=== PATIENT | male | born 1960 | race Caucasian/White ===

== ENCOUNTER → 2017-08-17 | Outpatient (CLI) | payer MEDICARE | END | disposition home or self-care (01) | LOC: LABWHC1 12:55 → MERGE 12:55 | PROVIDERS: ATTEND Nurse Practitioner | DX: F31.4 Bipolar disorder, current episode depressed, severe, without psychotic features (principal) | CPT/HCPCS: 36415; 80178 ==

== ENCOUNTER → 2018-02-14 | Outpatient (CLI) | payer MEDICARE | END | disposition home or self-care (01) | LOC: LABWHC1 10:44 | PROVIDERS: ATTEND Psychiatry & Neurology Psychiatry | DX: F31.4 Bipolar disorder, current episode depressed, severe, without psychotic features (principal) | CPT/HCPCS: 36415; 80178 ==

== ENCOUNTER 2018-04-20 13:15 | Emergency (ER) | payer MEDICARE ==
[2018-04-20] MEDS ORDERED: DEXAMETHASONE SOD PHOSPHATE 10 MG/ML 1 ML VIAL IV STA (14:22)
[2018-04-20] MEDS ORDERED: RACEPINEPHRINE 2.25% NEB 0.5 ML NEBU INHALATION STA (14:22)
[2018-04-20 15:03] LABS: Basophils # (A) 0.1 k/uL (0-0.2); Basophils % (A) 0 %; Eosinophils # (A) 0.4 k/uL (0-0.7); Eosinophils % (A) 3 %; HCT 47.9 % (39.0-53.0); HGB 15.6 gm/dL (13.0-17.5); Lymphocytes # (A) 1.4 k/uL (1.0-4.8); Lymphocytes % (A) 11 %; MCH 29.8 pg (25.0-35.0); MCHC 32.4 g/dL (31.0-37.0); MCV 91.9 fL (80.0-100.0); Mean Platelet Volume 6.1; Monocytes # (A) 0.5 k/uL (0-1.0); Monocytes % (A) 4 %; Neutrophils # (A) 10.1 k/uL (1.3-7.7); Neutrophils % (A) 80 %; Platelet Count 276 k/uL (150-450); RBC 5.22 m/uL (4.30-5.90); RDW 13.2 % (11.5-15.5); WBC 12.7 k/uL (3.8-10.6)
[2018-04-20 15:13] LABS: ALT 34 U/L (21-72); AST 18 U/L (17-59); Albumin 4.2 g/dL (3.5-5.0); Alkaline Phosphatase 44 U/L (38-126); Anion Gap 12 mmol/L; Blood Urea Nitrogen 9 mg/dL (9-20); Calcium 9.8 mg/dL (8.4-10.2); Carbon Dioxide 25 mmol/L (22-30); Chloride 105 mmol/L (98-107); Glucose 160 mg/dL (74-99); Magnesium 2.1 mg/dL (1.6-2.3); Partial Thromboplastin Time 22.4 sec (22.0-30.0); Potassium 4.2 mmol/L (3.5-5.1); Prothrombin Time 9.7 sec (9.0-12.0); Sodium 142 mmol/L (137-145); Total Bilirubin 0.5 mg/dL (0.2-1.3); Total Protein 7.3 g/dL (6.3-8.2)
--- NOTE | 2018-04-20 15:13 | ED ---
General Adult HPI - General Chief complaint: Upper Respiratory Infection Stated complaint: Upper Respiratory Time Seen by Provider: 04/20/18 14:04 Source: patient, RN notes reviewed, old records reviewed Mode of arrival: wheelchair Limitations: no limitations - History of Present Illness Initial comments: 57-year-old male presenting with worsening dyspnea. Patient has history of squamous cell carcinoma, he has had baseline dyspnea for several months, over the past one month this has worsened and he became acutely worse within the past 24 hours. Patient denies cough, denies fever or chills. Denies any chest pain associated with his dyspnea. Patient had previous procedure on his vocal cords after radiation approximately 5 months ago. He did have a rubber banding procedure done which was subsequently removed. He states he is scheduled for a procedure in this upcoming week with ENT. - Related Data Home Medications Medication Instructions Recorded Confirmed Levothyroxine Sodium [Synthroid] 175 mcg PO QAM 08/17/17 04/18/18 [place] Carbonate 600 mg PO BID 04/18/18 04/18/18 Previous Rx's Medication Instructions Recorded Ziprasidone [Geodon] 80 mg PO BID #14 cap 04/25/17 Albuterol Inhaler [Ventolin Hfa 1 - 2 puff INHALATION Q4HR PRN #1 04/20/18 Inhaler] inhaler Levofloxacin [Levaquin] 500 mg PO DAILY 5 Days #5 tab 04/20/18 Nystatin 500,000 unit PO Q6H #200 oral.susp 04/20/18 methylPREDNISolone Dose Pack 4 mg PO DIRECTED #21 package 04/20/18 [Medrol Dose Pack] Allergies Allergy/AdvReac Type Severity Reaction Status Date / Time adhesive tape Allergy Rash/Hives Verified 04/20/18 13:44 lisinopril Allergy Unknown Verified 04/20/18 13:44 Penicillins Allergy Unknown Verified 04/20/18 13:44 Review of Systems ROS Statement: Those systems with pertinent positive or pertinent negative responses have been documented in the HPI. ROS Other: All systems not noted in ROS Statement are negative. Past Medical History Past Medical History: Asthma, Cancer, Hyperlipidemia, Hypertension, Osteoarthritis (OA), Sleep Apnea/CPAP/BIPAP, Thyroid Disorder Additional Past Medical History / Comment(s): hernia on rt side of abdomen, bordrerline high blood pressure- no rx, no rx for cholesterol, laryngeal cancer , foreign body in throat History of Any Multi-Drug Resistant Organisms: None Reported Past Surgical History: Orthopedic Surgery Additional Past Surgical History / Comment(s): ORIF rt conchis-hardware, left femur fx x 2, hammertoe surgery rt foot. Vocal Tumor removed, Past Anesthesia/Blood Transfusion Reactions: No Reported Reaction Past Psychological History: Bipolar Smoking Status: Never smoker - Past Family History Father Family Medical History: Cancer (Father is 78-year-old his dying from stage IV lung cancer.) Additional Family Medical History / Comment(s): Lung Cancer Mother Family Medical History: No Reported History Brother(s) Family Medical History: Neurologic Disorder (He shouldn't has 2 brothers one of them with MS and the other one is okay) Sister(s) Family Medical History: No Reported History (Had one stepsister who couple years ago.) General Exam Limitations: no limitations General appearance: alert, in no apparent distress Head exam: Present: atraumatic, normocephalic Eye exam: Present: normal appearance, PERRL, EOMI ENT exam: Present: other (Posterior pharyngeal malou infection consistent with thrush) Neck exam: Present: normal inspection. Absent: tenderness, meningismus Respiratory exam: Present: respiratory distress (mid), stridor Cardiovascular Exam: Present: regular rate, normal rhythm GI/Abdominal exam: Present: soft, hernia (Ventral hernia, soft reducible). Absent: distended Extremities exam: Present: normal inspection, full ROM Back exam: Present: normal inspection Neurological exam: Present: alert, oriented X3, CN II-XII intact. Absent: motor sensory deficit Psychiatric exam: Present: normal affect, normal mood Skin exam: Present: warm, dry, intact. Absent: cyanosis, diaphoretic Course Vital Signs 04/20/18 04/20/18 04/20/18 13:41 14:01 14:48 Temperature 98.5 F Pulse Rate 100 85 Respiratory 22 18 16 Rate Blood Pressure 143/96 136/72 O2 Sat by Pulse 93 L 96 Oximetry 04/20/18 04/20/18 14:50 14:59 Temperature Pulse Rate 85 92 Respiratory Rate Blood Pressure O2 Sat by Pulse Oximetry Medical Decision Making - Medical Decision Making 57-year-old male with worsening dyspnea. History of squamous cell carcinoma of the larynx. He is scheduled for operation this upcoming week with his ENT surgeon. On exam patient does have mild stridor., He has good air entry bilaterally. Patient is fairly comfortable at rest. Workup reveals chest x- ray shows no right lower lobe infiltrate. Mild leukocytosis at 12.7. Normal electrolytes. Case is discussed with Dr. Chahal, is scheduled for surgery this upcoming Sunday, at this time we both agree that patient is okay for discharge, he will be started on antibiotic, steroids, antifungal and albuterol. He will return with worsening or changing symptoms. And will call on Sunday morning for ENT evaluation. - Lab Data Result diagrams: 04/20/18 14:45 04/20/18 14:45 Lab Results 04/20/18 04/20/18 04/20/18 Range/Units 14:45 14:45 14:45 WBC 12.7 H (3.8-10.6) k/uL RBC 5.22 (4.30-5.90) m/uL Hgb 15.6 (13.0-17.5) gm/dL Hct 47.9 (39.0-53.0) % MCV 91.9 (80.0-100.0) fL MCH 29.8 (25.0-35.0) pg MCHC 32.4 (31.0-37.0) g/dL RDW 13.2 (11.5-15.5) % Plt Count 276 (150-450) k/uL Neutrophils % 80 % Lymphocytes % 11 % Monocytes % 4 % Eosinophils % 3 % Basophils % 0 % Neutrophils # 10.1 H (1.3-7.7) k/uL Lymphocytes # 1.4 (1.0-4.8) k/uL Monocytes # 0.5 (0-1.0) k/uL Eosinophils # 0.4 (0-0.7) k/uL Basophils # 0.1 (0-0.2) k/uL PT 9.7 (9.0-12.0) sec INR 1.0 (<1.2) APTT 22.4 (22.0-30.0) sec Sodium 142 (137-145) mmol/L Potassium 4.2 (3.5-5.1) mmol/L Chloride 105 (98-107) mmol/L Carbon Dioxide 25 (22-30) mmol/L Anion Gap 12 mmol/L BUN 9 (9-20) mg/dL Creatinine 1.00 (0.66-1.25) mg/dL Est GFR (CKD-EPI)AfAm >90 (>60 ml/min/1.73 sqM) Est GFR (CKD-EPI)NonAf 84 (>60 ml/min/1.73 sqM) Glucose 160 H (74-99) mg/dL Calcium 9.8 (8.4-10.2) mg/dL Magnesium 2.1 (1.6-2.3) mg/dL Total Bilirubin 0.5 (0.2-1.3) mg/dL AST 18 (17-59) U/L ALT 34 (21-72) U/L Alkaline Phosphatase 44 (38-126) U/L Total Protein 7.3 (6.3-8.2) g/dL Albumin 4.2 (3.5-5.0) g/dL Disposition Clinical Impression: Pneumonia, Laryngeal carcinoma, Thrush, oral Disposition: HOME SELF-CARE Condition: Fair Instructions: Bacterial Pneumonia (ED) Prescriptions: Albuterol Inhaler [Ventolin Hfa Inhaler] 1 - 2 puff INHALATION Q4HR PRN #1 inhaler PRN Reason: Shortness Of Breath Levofloxacin [Levaquin] 500 mg PO DAILY 5 Days #5 tab methylPREDNISolone Dose Pack [Medrol Dose Pack] 4 mg PO DIRECTED #21 package Nystatin 500,000 unit PO Q6H #200 oral.susp Is patient prescribed a controlled substance at d/c from ED?: No Referrals: Jeffry Don MD [Primary Care Provider] - 1-2 days Brandon Gray MD [STAFF PHYSICIAN] - 1-2 days Time of Disposition: 16:09
--- NOTE | 2018-04-20 15:43 | XR ---
EXAMINATION TYPE: XR chest 2V DATE OF EXAM: 04/20/2018 COMPARISON: 07/26/2017 HISTORY: 57-year-old male difficulty breathing TECHNIQUE: Frontal and lateral views FINDINGS: Heart upper limits of normal in size. There is some patchy opacity at the right midlung and right bas e as well as the posterior base on the lateral view. No significant pleural effusion. IMPRESSION: Some patchy infiltrates right mid and lower lung as well as the posterior base on the lateral view. C orrelate for possible etiologies such as developing pneumonia or interstitial pneumonitis.
[2018-04-20 16:27] VITALS: BP 140/85; PULSE 82; RESP 20; TEMP 97.4
== END 2018-04-20 16:24 | disposition home or self-care (01) ==
LOC: EC 13:15
DX: J18.9 Pneumonia, unspecified organism (principal); C32.9 Malignant neoplasm of larynx, unspecified; B37.0 Candidal stomatitis; F31.9 Bipolar disorder, unspecified; E07.9 Disorder of thyroid, unspecified; G47.30 Sleep apnea, unspecified; Z99.89 Dependence on other enabling machines and devices; Z79.899 Other long term (current) drug therapy; Z88.0 Allergy status to penicillin; Z88.8 Allergy status to other drugs, medicaments and biological substances; Z91.048 Other nonmedicinal substance allergy status
CPT/HCPCS: 36415; 94644; 80053; 83735; 85025; 85610; 85730; 71046; 99284; 96374; J1100

== ENCOUNTER 2018-04-24 11:40 | Day surgery (SDC) | payer MEDICARE ==
[2018-04-18 13:11] VITALS: BMI 38.7
[~2018-04-24 11:40] MED LIST: CLINDAMYCIN 600 MG in DEXTROSE 5% IN WATER 50 ML IVPB ONE; DEXAMETHASONE SOD PHOSPHATE 4 MG/ML 1 ML VIAL IV ONE; FAMOTIDINE 20 MG/2 ML VIAL IV ONE; ONDANSETRON 4 MG/2 ML VIAL IVP ONE
[2018-04-24] MEDS ORDERED: LACTATED RINGERS 1,000 ML IV SCH (12:24)
[2018-04-24] MEDS ORDERED: HYDROmorphone 0.5 MG/0.5 ML SYRINGE IVP PRN (12:24)
[2018-04-24] MEDS ORDERED: DEXAMETHASONE SOD PHOSPHATE 10 MG/ML 1 ML VIAL IV ONE (12:24)
[2018-04-24] MEDS ORDERED: ONDANSETRON 4 MG/2 ML VIAL IVP ONE (12:24)
[2018-04-24] MEDS ORDERED: LIDOCAINE 1% 20 ML VIAL (10MG/ML) FOR IV START INTRADERMA ONE (12:40)
[2018-04-24] MEDS ORDERED: LIDOCAINE 1% INJ 10MG/ML (20 ML MDV) ONE (13:44)
[2018-04-24] MEDS ORDERED: fentaNYL (PF) 50 MCG/ML 2 ML AMP ONE (13:44)
[2018-04-24] MEDS ORDERED: DEXAMETHASONE SOD PHOS (MDV) 100 MG/10 ML VIAL ONE (13:44)
[2018-04-24] MEDS ORDERED: MIDAZOLAM 2 MG/2 ML VIAL ONE (13:44)
[2018-04-24] MEDS ORDERED: PROPOFOL 10 MG/ML 20 ML VIAL IV ONE (13:44)
[2018-04-24] MEDS ORDERED: SUCCINYLCHOLINE CHLORIDE VIAL 200 MG/10 ML VIAL IV ONE (13:44)
--- NOTE | 2018-04-24 14:20 | P.OP ---
Date of Procedure: 04/24/18 Preoperative Diagnosis: Foreign body larynx Postoperative Diagnosis: Same Procedure(s) Performed: Microlaryngoscopy with removal foreign body of the larynx Anesthesia: DIVINA Surgeon: Brandon Gray Estimated Blood Loss (ml): 1 Pathology: other (Foreign body larynx) Condition: stable Disposition: PACU Indications for Procedure: This is a 57-year-old white male who has history of laryngeal cancer and dysplasia whose had multiple procedures including excisions and biopsies as well as radiotherapy and implant to try to improve his voice. He had removal of foreign body which appeared to be consistent with Ribbon type [place] in July with improvement of breathing and voice at that time. About a month ago he developed some increased difficulty with his breathing again as well as hoarseness and was noted as an outpatient to have the appearance of further extruding material from the anterior commissure. Operative Findings: There was evidence of foreign body in the larynx arising from the anterior commissure which was grossly the same material as was removed in July. There was approximately 4 cm in length of this ribbon type foreign body 2.5 cm was extruded into the airway and in continuity approximately 1.5 cm removed from submucosally there were no abnormal lesions of the larynx noted otherwise grossly including leukoplakia. Description of Procedure: The patient was brought in the operative suite and placed in a supine position. The patient underwent induction of general anesthesia with oral endotracheal intubation without difficulty although the #6 [employer] endotracheal tube was tight at the glottic level. The patient was then prepped and draped in the usual aseptic fashion. The tooth guard was placed and direct laryngoscopy was performed with systematic evaluation of the base of tongue vallecula both piriform sinuses post cricoid area and endolarynx. With the larynx in good visualization the laryngoscope was placed in suspension. The Zeiss microscope was brought into position and the larynx was well visualized. The foreign material was well visualized and with an up-biting cup forceps this was grasped and removed without difficulty. This appeared to emanate from the right side of the anterior commissure. Reexamination under microscopy showed no bleeding and no further foreign material. No other abnormal lesions were noted either. Or endoscope was then removed. Patient was allowed to emerge from general anesthesia having tolerated procedure well and was extubated operating suite and transferred to the postop recovery area in satisfactory condition.
[2018-04-24 14:35] VITALS: TEMP 96.9
[2018-04-24 15:45] VITALS: BP 137/81; PULSE 58; RESP 20
== END 2018-04-24 15:48 | disposition home or self-care (01) ==
LOC: OR 11:40
PROVIDERS: ATTEND Otolaryngology
DX: T17.398A Other foreign object in larynx causing other injury, initial encounter (principal); J38.01 Paralysis of vocal cords and larynx, unilateral; Z85.21 Personal history of malignant neoplasm of larynx; J45.909 Unspecified asthma, uncomplicated; I10 Essential (primary) hypertension; F32.9 Major depressive disorder, single episode, unspecified; E78.00 Pure hypercholesterolemia, unspecified; G47.33 Obstructive sleep apnea (adult) (pediatric); E07.9 Disorder of thyroid, unspecified; E66.9 Obesity, unspecified; Z68.38 Body mass index [BMI] 38.0-38.9, adult; Z79.890 Hormone replacement therapy; Z79.891 Long term (current) use of opiate analgesic; Z79.52 Long term (current) use of systemic steroids; Z79.899 Other long term (current) drug therapy; Z88.0 Allergy status to penicillin; Z88.8 Allergy status to other drugs, medicaments and biological substances; Z91.048 Other nonmedicinal substance allergy status
CPT/HCPCS: 88304; 31531; J2250; J0330; J1100 ×2; J2405; J2001; J3010; J2704